=== PATIENT | male | born 1960 | race Two or more races ===

== ENCOUNTER 2018-08-06 09:38 | Outpatient (CLI) | payer OTHER | END 2018-08-06 10:34 | disposition home or self-care (01) | LOC: RAD 501 09:38 | DX: M65.872 Other synovitis and tenosynovitis, left ankle and foot (principal) ==

== ENCOUNTER 2019-02-10 08:34 | Outpatient (CLI) | payer OTHER | END 2019-02-10 08:38 | disposition home or self-care (01) | LOC: SONOGRAMA 08:34 | DX: R10.11 Right upper quadrant pain (principal) ==